=== PATIENT | male | born 1980 | race Native Hawaiian/Other Pacific Islander ===

== ENCOUNTER 2017-11-16 09:52 | Emergency (ER) | payer OTHER ==
--- NOTE | 2017-11-16 10:57 | ED PDOC ---
Lower Extremity Pain/Injury Time Seen by Provider: 11/16/17 10:56 Chief Complaint (Nursing): Lower Extremity Problem/Injury Chief Complaint (Provider): ankle injury History Per: Patient (37 y/o male here with right ankle injury that occurred when he twisted ankle yesterday. Patient denies any difficulty walking on ankle. Notes he missed a step yesterday and twisted ankle.) Past Medical History Reviewed: Historical Data, Nursing Documentation, Vital Signs Vital Signs: Last Vital Signs Temp 98.9 F 11/16/17 10:10 Pulse 76 11/16/17 10:10 Resp 16 11/16/17 10:10 BP 103/73 11/16/17 10:10 Pulse Ox 100 11/16/17 10:10 - Medical History PMH: Gastrointestinal Ulcer Other PMH: neuropathy on gabapentin - Family History Family History: States: No Known Family Hx - Allergies Allergies/Adverse Reactions: Allergies Allergy/AdvReac Type Severity Reaction Status Date / Time No Known Allergies Allergy Verified 11/16/17 10:33 Review of Systems ROS Statement: Except As Marked, All Systems Reviewed And Found Negative Physical Exam - Reviewed Nursing Documentation Reviewed: Yes Vital Signs Reviewed: Yes - Physical Exam Appears: Positive for: Well, Non-toxic, No Acute Distress Head Exam: Positive for: ATRAUMATIC, NORMAL INSPECTION, NORMOCEPHALIC Skin: Positive for: Normal Color, Warm, DRY Eye Exam: Positive for: EOMI, Normal appearance, PERRL ENT: Positive for: Normal ENT Inspection Neck: Positive for: Normal, Painless ROM Cardiovascular/Chest: Positive for: Regular Rate, Rhythm Respiratory: Positive for: CNT, Normal Breath Sounds Gastrointestinal/Abdominal: Positive for: Normal Exam, Soft Back: Positive for: Normal Inspection Extremity: Positive for: Normal ROM, Tenderness (right ankle malleoular tenderness; minimal swelling) Neurologic/Psych: Positive for: Alert, Oriented - ECG O2 Sat by Pulse Oximetry: 100 - Progress ED Course And Treament: ankle xry: no acute fx given crutch instructions Disposition - Clinical Impression Clinical Impression: Ankle injury - Patient ED Disposition Is Patient to be Admitted: No - Disposition Referrals: Podiatry Clinic [Outside] Disposition: Routine/Home Disposition Time: 11:23 Condition: FAIR Instructions: Ankle Sprain (DC)
--- NOTE | 2017-11-16 11:15 | RAD ---
PROCEDURE: Right Ankle Radiographs. HISTORY: ankle injury COMPARISON: None FINDINGS: BONES: No acute fracture. JOINTS: Ankle mortise maintained. Talar dome intact SOFT TISSUES: Lateral malleolar soft tissue swelling. Small ankle joint effusion OTHER FINDINGS: Achilles enthesophyte. IMPRESSION: Lateral malleolar soft tissue swelling and small ankle joint effusion without demonstrated fracture or dislocation.
[2017-11-16 11:48] VITALS: BP 136/78; PULSE 72; RESP 18; TEMP 98.5; O2SAT 98
== END 2017-11-16 11:47 | disposition home or self-care (01) ==
LOC: H.ER 09:52
DX: S99.911A Unspecified injury of right ankle, initial encounter (principal); X50.9XXA Other and unspecified overexertion or strenuous movements or postures, initial encounter; Y92.89 Other specified places as the place of occurrence of the external cause

== ENCOUNTER 2018-09-08 07:47 | Emergency (ER) | payer OTHER ==
[2018-09-08 07:50] VITALS: BMI 21.4
[2018-09-08 07:51] VITALS: RESP 18; TEMP 98.7; O2SAT 100
--- NOTE | 2018-09-08 08:11 | ED PDOC ---
Lower Extremity Pain/Injury Time Seen by Provider: 09/08/18 07:50 Chief Complaint (Nursing): Lower Extremity Problem/Injury Chief Complaint (Provider): left leg History Per: Patient History/Exam Limitations: no limitations Onset/Duration Of Symptoms: Days (x4-5) Current Symptoms Are (Timing): Still Present Additional Complaint(s): Abbi Kaye is a 38 year old male, with no significant past medical history, who presents to the emergency department complaining of left leg pain onset for x4-[address] Craig who prescribed him Flexeril and Ibuprofen but with no improvement. Patient last took pain medication at 14:00 yesterday. Patient denies any falls, injuries, fever, chills, numbness, tingling, weakness or other medical complaints. PMD: None provided. Past Medical History Reviewed: Historical Data, Nursing Documentation, Vital Signs Vital Signs: Last Vital Signs Temp 98.7 F 09/08/18 07:50 Pulse 84 09/08/18 07:50 Resp 18 09/08/18 07:50 BP 113/74 09/08/18 07:50 Pulse Ox 100 09/08/18 07:50 - Medical History PMH: Gastrointestinal Ulcer - Surgical History Surgical History: No Surg Hx - Family History Family History: States: Unknown Family Hx - Social History Current smoker - smoking cessation education provided: Yes (Current some days smoker) Alcohol: None Drugs: Denies - Home Medications Home Medications: Ambulatory Orders Medication Instructions Recorded Lidocaine 5% [Lidoderm] 1 ea TD DAILY PRN #10 patch 09/08/18 - Allergies Allergies/Adverse Reactions: Allergies Allergy/AdvReac Type Severity Reaction Status Date / Time No Known Allergies Allergy Verified 11/16/17 10:33 Review of Systems ROS Statement: Except As Marked, All Systems Reviewed And Found Negative Constitutional: Negative for: Fever, Chills Musculoskeletal: Positive for: Leg Pain (left) Neurological: Negative for: Weakness, Numbness (tingling) Physical Exam - Reviewed Nursing Documentation Reviewed: Yes Vital Signs Reviewed: Yes - Physical Exam Appears: Positive for: No Acute Distress Head Exam: Positive for: ATRAUMATIC, NORMAL INSPECTION, NORMOCEPHALIC Skin: Positive for: Normal Color, Warm, Dry Eye Exam: Positive for: Normal appearance, EOMI, PERRL Neck: Positive for: Normal, Painless ROM Back: Positive for: Normal Inspection. Negative for: L CVA Tenderness, R CVA Tenderness, Vertebral Tenderness Extremity: Positive for: Normal ROM (Full ROM of lower extremities), Tenderness (left buttock down to posterior thigh). Negative for: Pedal Edema, Calf Tenderness, Deformity, Swelling (No erythema, ecchymosis or edema to buttock or thigh area) Neurological/Psych: Positive for: Awake, Alert, Normal Tone, Oriented, Gait (steady). Negative for: Motor/Sensory Deficits - ECG O2 Sat by Pulse Oximetry: 100 (RA) Pulse Ox Interpretation: Normal - Other Rad XR L-spine X-Ray: Interpreted by Ia X-Ray Interpretation: Negative. Medical Decision Making Medical Decision Making: Time: 07:50 Initial Impression: Leg pain Initial Plan: --Lumbar Spine Complete [RAD] --Oxycodone 1 tab PO --Duplex Lower Extrm Vein Left [US] --Reevaluation Accession No. : [id number] Patient Name / ID : SACHIN Jose / [id number] Exam Date : 09/08/2018 08:29:14 ( Approved ) Study Comment : Sex / Age : M / [id number] Creator : Manjinder Oh MD Dictator : Manjinder Oh MD Application Processor : Talent Program Manager : Manjinder Oh MD Approver2 : Report Date : 09/08/2018 09:41:52 My Comment : Date of service: 09/08/2018 HISTORY: L leg pain. PRIORS: None. FINDINGS: 2-D, color and duplex Doppler analysis of the lower extremity venous circulation using routine protocol from the femoral veins through the popliteal veins. Venous compressibility: Normal. Flow and augmentation patterns: Normal. Visualized veins upper third of calf: Normal. Fitzpatrick cyst: None. Incidental left inguinal lymph node, 6 x 9 x 17 mm. IMPRESSION: No sonographic or Doppler evidence for DVT in left lower extremity. Scribe Attestation: Documented by Ulysses Thomas, acting as a scribe Selam Álvarez MD Provider Scribe Attestation: All medical record entries made by the Scribe were at my direction and personal ly dictated by me. I have reviewed the chart and agree that the record accurately reflects my personal performance of the history, physical exam, medical decision making, and the department course for this patient. I have also personally directed, reviewed, and agree with the discharge instructions and disposition. Disposition - Clinical Impression Clinical Impression: Low back pain - Disposition Disposition: Routine/Home Disposition Time: 09:55 Condition: IMPROVED Additional Instructions: FOLLOW-UP WITH PMD WITHIN 2 DAYS FOR REEVALUATION. Prescriptions: Lidocaine 5% [Lidoderm] 1 ea TD DAILY PRN #10 patch PRN Reason: Pain, Moderate (4-7) Instructions: Low Back Pain in Adults Forms: [employer] (Chinese)
[2018-09-08] MEDS ORDERED: Oxycodone/Acetaminophen 5/325 mg Tab PO STA (08:15)
[2018-09-08] MEDS ORDERED: Oxycodone/Acetaminophen 5/325 mg Tab ONE (09:30)
--- NOTE | 2018-09-08 09:45 | US ---
Date of service: 09/08/2018 HISTORY: L leg pain. PRIORS: None. FINDINGS: 2-D, color and duplex Doppler analysis of the lower extremity venous circulation using routine protocol from the femoral veins through the popliteal veins. Venous compressibility: Normal. Flow and augmentation patterns: Normal. Visualized veins upper third of calf: Normal. Fitzpatrick cyst: None. Incidental left inguinal lymph node, 6 x 9 x 17 mm. IMPRESSION: No sonographic or Doppler evidence for DVT in left lower extremity.
[2018-09-08 10:43] VITALS: BP 118/70; PULSE 81
--- NOTE | 2018-09-08 11:05 | RAD ---
Date of service: 09/08/2018 PROCEDURE: Radiographs of the Lumbar Spine. HISTORY: L lower back pain COMPARISON: No prior. TECHNIQUE: 5 views obtained. FINDINGS: BONES: There is normal alignment of the lumbar vertebral bodies. There is normal lumbar lordosis. There is no acute fracture, spondylolysis or spondylolisthesis. Bone mineralization is normal. DISC SPACES: There is mild degenerative disc disease at L5-S1 with reduced disc height and facet arthropathy. The remaining disc heights are maintained. OTHER FINDINGS: No pathologic soft tissue calcifications. Both sacroiliac joints are normal. IMPRESSION: No acute fracture, spondylolysis or spondylolisthesis. Mild degenerative disc disease at L5-S1.
== END 2018-09-08 10:34 | disposition home or self-care (01) ==
LOC: H.ER 07:47
DX: M54.5 Low back pain (principal); M51.37 Other intervertebral disc degeneration, lumbosacral region